=== PATIENT | female | born 2000 | race African-American/Black ===

== ENCOUNTER 2022-02-28 23:42 | Observation (INO) | payer MEDICAID, OTHER | END 2022-03-01 01:01 | disposition home or self-care (01) | LOC: LDRP 23:42 | PROVIDERS: ADMIT Obstetrics & Gynecology; ATTEND Obstetrics & Gynecology | DX: O62.9 Abnormality of forces of labor, unspecified (principal); Z3A.39 39 weeks gestation of pregnancy | CPT/HCPCS: 59025; 81002; 94760; G0378 ==

== ENCOUNTER 2022-03-15 19:47 | Observation (INO) | payer OTHER | END 2022-03-15 21:57 | disposition home or self-care (01) | LOC: LDRP 19:47 | PROVIDERS: ADMIT Obstetrics & Gynecology; ATTEND Obstetrics & Gynecology | DX: O42.92 Full-term premature rupture of membranes, unspecified as to length of time between rupture and onset of labor (principal); O62.9 Abnormality of forces of labor, unspecified; Z3A.41 41 weeks gestation of pregnancy | CPT/HCPCS: 59025; 81002; 84112; 94760; G0378; Q0114 ==